=== PATIENT | female | born 1995 | race Caucasian/White ===

== ENCOUNTER 2025-02-14 01:05 | Emergency (ER) | payer MEDICARE, SELFPAY ==
--- NOTE | 2025-02-14 01:12 | ED_ITS ---
HPI - General Adult General Time Seen by Provider: 01:12 Date Seen: 02/14/25 Chief complaint: Head Injury/Pain Stated complaint: fell - hit head Time Seen by Provider: 02/14/25 01:12 Source: patient Mode of arrival: ambulatory Limitations: no limitations History of Present Illness HPI narrative: 30-year-old female who presents today after falling and hitting her head. Patient says she does not remember what happened, unable to tell me if she passed out. Per her friend who dropped her off, she was unconscious for 10 minutes. Patient complains of generalized headache but no other pain or injury. She reports she is on Xarelto, when I ask her why she says I do not know. She answers many questions I do not know or does not answer the question. Related Data Allergies Allergy/AdvReac Type Severity Reaction Status Date / Time iodine Allergy Intermediate Hives Verified 02/14/25 01:21 Exam Narrative: Exam Narrative: General: Well-developed and well-nourished, no acute distress Head: Atraumatic and normocephalic Eyes: Pupils are equal reactive, extraocular motions intact, conjunctiva clear ENT: External nose and ears are normal, posterior pharynx without erythema or exudate Neck: No midline cervical tenderness, full spontaneous range of motion the neck, trachea midline, no adenopathy Heart: Regular rate and rhythm no murmurs or thrills Lungs: Clear to auscultation bilaterally without wheezes or crackles Abdomen: Soft, nontender, nondistended with active bowel sounds Musculoskeletal: No tenderness, deformity, or edema Neurologic: Awake, alert, and oriented x3, no gross focal neurologic deficits, cranial nerves intact as tested Psych: Mood and affect are appropriate Skin: No rashes Const: Vital Signs, click to edit/add: Vital Signs - 24 hr 02/14/25 01:15 Temperature 97.2 F L Pulse Rate [Pulse Oximeter] 80 Respiratory Rate 16 Blood Pressure [Ri ght Forearm] 140/91 H Pulse Oximetry 96 Oxygen Delivery Me thod Room Air Course Course ED Course: patient seen and examined, presents today with reported head injury after fall, reports 10 minute loss of consciousness, is on Xarelto. Patient is a poor historian, refuses to answer many questions. No external signs of head trauma. No midline cervical tenderness in patient fully extends her neck to lay down on the pillow, no indication for cervical CT. 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 Reviewed multiple prior emergency department visits from October in November at outside facilities for nausea, headache, dehydration. Reevaluation(s) Time of Reevaluation #1: 01:37 Reevaluation #1: CT head independently interpreted by me with port in place, no acute intracranial hemorrhage or ventriculomegaly to suggest shunt dysfunction. EKG independently interpreted by me performed at 1:40 a.m. demonstrates sinus rhythm rate 74, IL 174, QTC 463, no acute ischemic changes. No prior for comparison. Time of Reevaluation #2: 01:45 Reevaluation #2: further record review shows the patient was discharged from [facility] Emergency Department at 11:51 p.m. tonight after presenting with nausea vomiting, chronic pain. She had a behavior health assessment at that time and was felt to be stable for discharge , also received normal saline infusion, labs including comprehensive panel and CBC were done these demonstrated slightly elevated AST and ALT. On recheck, nursing mention that we had medication list from shock p.m. patient was able to speak in full sentences, awake alert, marked change her initial presentation of saying she could remember anything, and unable to maintain alertness to answer questions. Time of Reevaluation #3: 02:12 Reevaluation #3: rechecks and updated patient with findings and plan. Troponin is 0.01, patient is stable for discharge. Vital Signs Vital signs: Initial Vital Signs Temperature 97.2 F L 02/14/25 01:15 Temperature Source Temporal Artery Scan 02/14/25 01:15 Pulse Rate 80 02/14/25 01:15 Respiratory Rate 16 02/14/25 01:15 Blood Pressure 140/91 H 02/14/25 01:15 Blood Pressure Mean 107 H 02/14/25 01:15 Blood Pressure Position Semi-Fowlers 02/14/25 01:15 Pulse Oximetry 96 02/14/25 01:15 Oxygen Delivery Method Room Air 02/14/25 01:15 Vital Signs Temperature 97.2 F L 02/14/25 01:15 Pulse Rate 80 02/14/25 01:15 Respiratory Rate 16 02/14/25 01:15 Blood Pressure 140/91 H 02/14/25 01:15 Pulse Oximetry 96 02/14/25 01:15 Oxygen Delivery Method Room Air 02/14/25 01:15 Temperature 97.2 F L 02/14/25 01:15 Pulse Rate 80 02/14/25 01:15 Respiratory Rate 16 02/14/25 01:15 Blood Pressure 140/91 H 02/14/25 01:15 Pulse Oximetry 96 02/14/25 01:15 Oxygen Delivery Method Room Air 02/14/25 01:15 Medications Administered Medications: Discontinued Medications Generic Name Dose Route Start Last Admin Trade Name Freq PRN Reason Stop Dose Admin Sodium Chloride 1,000 mls @ 1,000 mls/hr 02/14/25 01:30 02/14/25 01:57 0.9 % Sodium Chloride 1000 Ml IV 02/14/25 02:29 Not Given .Q1H REFUGIO Medical Decision Making Lab Data Labs: Lab Results 02/14/25 02/14/25 Range/Units 01:21 01:43 WBC 6.97 (4.50-11.00) K/uL RBC 4.46 (4.00-5.20) m/uL Hgb 12.4 (12.0-16.0) gm/dL Hct 38.2 (33.0-51.0) % MCV 86 (80-100) fL MCH 28 (26-34) pg MCHC 33 (32-36) gm/dL RDW Coeff of Tariq 13.3 (11.5-15.5) % Plt Count 257 (140-440) K/uL Neut % (Auto) 61.1 (42.0-72.0) % Lymph % (Auto) 26.4 (20-44) % [place] % (Auto) 7.6 (0.0-11.0) % Eos % (Auto) 4.2 (0.0-7.0) % Baso % (Auto) 0.6 (0.0-3.0) % Neut # (Auto) 4.26 (1.7-7.0) K/uL Lymph # (Auto) 1.84 (0.90-2.90) K/uL [place] # (Auto) 0.50 (0.00-0.90) K/UL Eos # (Auto) 0.29 (0.00-0.50) K/uL Baso # (Auto) 0.04 (0.00-0.30) K/uL Abs Immat Gran (auto) 0.01 (0.00-0.30) K/uL Imm/Tot Granulo (auto) 0.1 % Sodium 140 (135-149) mmol/L Potassium 3.5 L (3.6-5.1) mmol/L Chloride 106 (96-114) mmol/L Carbon Dioxide 26 (20-32) mmol/L Anion Gap 8 (7-15) mEq/L BUN 8 (5-24) mg/dL Creatinine 0.9 (0.5-1.5) mg/dL Estimated Creat Clear 104.52 Estimated GFR 88 ml/min Glucose 112 (60-115) mg/dL Calcium 8.8 (8.4-10.6) mg/dL Ethyl Alcohol < 0.01 (0.01-0.03) % POC Troponin I 0.01 (0.01-0.04) ng/ml Discharge Plan Discharge Clinical Impression: Frequent patient in emergency department, Anticoagulant long-term use, APPLICATION DEVELOPMENT DIRECTOR (ventriculoperitoneal) shunt status, Syncope, Head injury Patient Disposition: Home, Self-Care Condition: Stable Instructions: Syncope (ED) Additional Instructions: Follow-up with your primary care provider Activity Level: No Restrictions Discharge Diet: Regular Follow Up/Referrals: Provider,Not a Local [Primary Care Provider, Family Practice] Stand Alone Forms: [employer] Info Instructions
[2025-02-14 01:15] VITALS: BP 140/91; PULSE 80; RESP 16; TEMP 36.2; O2SAT 96; BMI 43.4
--- NOTE | 2025-02-14 01:21 | CRLHL7_ITS ---
For Patients: As a result of the Century Cures Act, medical imaging exams and procedure reports are released immediately into your electronic medical record. You may view this report before your referring provider. If you have questions, please contact your health care provider. INDICATION: Fall, anticoagulation. TECHNIQUE: CT head without contrast. COMPARISON: None. FINDINGS: Brain parenchyma, CSF spaces, and extra-axial spaces: Left frontal approach SURFACE PLATE INSPECTOR shunt catheter tip terminates at the foramen of [place]ro. The catheter appears intact. The delgado-white differentiation is normal. No sign of mass, hemorrhage, or midline shift. No hydrocephalus. No extra-axial fluid collection. Right transverse sinus stent. Skull base and calvarium: Mucous retention cysts versus polyps in the maxillary sinuses, [id number]. The mastoid air cells are clear. The visualized orbits are grossly unremarkable. No skull fracture. IMPRESSION: No evidence of an acute intracranial abnormality. Please note that all CT scans at this facility use dose modulation, iterative reconstruction, and/or weight-based dosing when appropriate to reduce radiation dose to as low as reasonably achievable. Dictated by Terry Perkins MD @ 02/14/2025 1:48:42 AM (Electronically Signed)
[2025-02-14 01:47] LABS: Hematocrit* 38.2 % (33.0-51.0); Hemoglobin* 12.4 gm/dL (12.0-16.0); Immature Granulocytes Abs Auto 0.01 K/uL (0.00-0.30); Immature Granulocytes Pct Auto 0.1 %; Lymphocytes Absolute Auto 1.84 K/uL (0.90-2.90); Mean Corpuscular HGB Conc 33 gm/dL (32-36); Mean Corpuscular Hemoglobin 28 pg (26-34); Mean Corpuscular Volume 86 fL (80-100); RDW Coefficient of Variation % 13.3 % (11.5-15.5); Red Blood Count* 4.46 m/uL (4.00-5.20); White Blood Count* 6.97 K/uL (4.50-11.00)
[2025-02-14 01:49] LABS: Slide Review Reflex No
[2025-02-14 02:00] LABS: Chloride* 106 mmol/L (96-114); Potassium* 3.5 mmol/L (3.6-5.1); Sodium* 140 mmol/L (135-149)
[2025-02-14 02:03] LABS: Anion Gap 8 mEq/L (7-15); Blood Urea Nitrogen* 8 mg/dL (5-24); Calcium* 8.8 mg/dL (8.4-10.6); Carbon Dioxide* 26 mmol/L (20-32); Creatinine* 0.9 mg/dL (0.5-1.5); Est. Creatinine Clearance* 104.52; Estimated Glomerular Filt Rate 88 ml/min; Glucose* 112 mg/dL (60-115)
[2025-02-14 02:05] LABS: Ethanol* < 0.01 % (0.01-0.03)
[2025-02-14 02:10] LABS: Troponin, Point-of-Care* 0.01 ng/ml (0.01-0.04)
--- NOTE | 2025-02-14 02:20 | ED.NURSE ---
Pt verbally upset with discharge instructions and discharge advice from doctor. Pt states, you did not help me. Pt advised by doctor that she did receive lab work and a CT scan. Pt talking to herself in room and stating to nursing, you are not helping me. Pt is getting dressed and is leaving facility. Doctor and nursing reassured pt with discharge plan before leaving.
== END 2025-02-14 02:25 | disposition home or self-care (01) ==
PROVIDERS: Emergency Provider Family Medicine
DX: S09.90XA Unspecified injury of head, initial encounter (principal); R55 Syncope and collapse; Z79.01 Long term (current) use of anticoagulants; Z98.2 Presence of cerebrospinal fluid drainage device
CPT/HCPCS: 36415; 70450; 80048; 82077; 84484; 85025; 93005; 99284